=== PATIENT | male | born 1960 | race Caucasian/White ===

== ENCOUNTER → 2016-07-11 | Outpatient (CLI) | payer MEDICARE, SELFPAY ==
[~2016-07-11] MED LIST: CASCARA SAGRADA1 ML PO; CRANBERRY PO; FAMOTIDINE40 MG PO; FLUTICASONE PRO16 GM; GARLIC PO; NORCO 5-325 TA1 EACH PO; PATADAY EYE DROPS; PROTONIX20 MG PO; TART CHERRY PO; ULTRAM50 MG PO; ZANAFLEX4 MG PO; [UNRECOGNIZED DRUG - OTHER]; [UNRECOGNIZED DRUG - OTHER] PO
== END ==
LOC: RAD 08:52
DX: S46.011A Strain of muscle(s) and tendon(s) of the rotator cuff of right shoulder, initial encounter (principal); M75.101 Unspecified rotator cuff tear or rupture of right shoulder, not specified as traumatic; S46.821A Laceration of other muscles, fascia and tendons at shoulder and upper arm level, right arm, initial encounter
CPT/HCPCS: 73040; 73222; A9577; Q9962

== ENCOUNTER → 2020-05-21 | Outpatient (CLI) | payer MEDICARE, OTHER ==
[~2020-05-21] MED LIST changes: +CALCIUM500 MG PO; +CBD OIL PO; +CONSTULOSE10 GM/15 M PO; +EUTHYROX75 MCG PO; +FAMCICLOVIR250 MG PO; +GLUCOSAMINE CH1 EAC7 PO; +NINLARO PO; +PROBIOTIC & AC1 EACH PO; +VITAMIN D310 MC2 PO; +ZOMETA 4 M4 MG/100 M INJ
== END ==
LOC: LAB 09:18
DX: R79.89 Other specified abnormal findings of blood chemistry (principal); Z90.09 Acquired absence of other part of head and neck
CPT/HCPCS: 36415; 84439; 84443

== ENCOUNTER → 2020-05-26 | Outpatient (CLI) | payer MEDICARE, OTHER | LOC: US 09:18 | DX: N50.812 Left testicular pain (principal); N50.89 Other specified disorders of the male genital organs | CPT/HCPCS: 76870 ==

== ENCOUNTER → 2020-07-06 | Outpatient (CLI) | payer MEDICARE, OTHER | LOC: LAB 11:51 | DX: E03.9 Hypothyroidism, unspecified (principal) | CPT/HCPCS: 36415; 84439; 84443 ==

== ENCOUNTER → 2020-07-24 | Outpatient (CLI) | payer MEDICARE, OTHER | LOC: EXRD 10:12 | DX: M25.561 Pain in right knee (principal); R93.6 Abnormal findings on diagnostic imaging of limbs | CPT/HCPCS: 73564 ==

== ENCOUNTER → 2020-09-01 | Outpatient (CLI) | payer MEDICARE, OTHER ==
[2020-09-01 11:26] LABS: BUN/CREATININE RATIO 14 (0-10)
== END ==
LOC: LAB 09:58
PROVIDERS: Family Medicine
DX: E03.9 Hypothyroidism, unspecified (principal); E78.2 Mixed hyperlipidemia; N40.1 Benign prostatic hyperplasia with lower urinary tract symptoms; Z12.5 Encounter for screening for malignant neoplasm of prostate
CPT/HCPCS: 36415; 80053; 80061; 84439; 84443; G0103

== ENCOUNTER → 2020-09-15 | Day surgery (SDC) | payer MEDICARE, OTHER | END | disposition home or self-care (01) | LOC: OR 07:38 | DX: D12.2 Benign neoplasm of ascending colon (principal); D12.0 Benign neoplasm of cecum; K64.8 Other hemorrhoids; Z88.2 Allergy status to sulfonamides; Z88.5 Allergy status to narcotic agent; Z82.49 Family history of ischemic heart disease and other diseases of the circulatory system; E11.9 Type 2 diabetes mellitus without complications; Z80.1 Family history of malignant neoplasm of trachea, bronchus and lung | CPT/HCPCS: J2704; J7040 ==

== ENCOUNTER → 2021-03-24 | Outpatient (CLI) | payer MEDICARE, OTHER ==
[2021-03-24 11:52] LABS: HEMOGLOBIN 15.2 gm/dl (14.0-17.5); RED BLOOD COUNT 4.15 M/UL (4.20-5.50)
[2021-03-24 12:47] LABS: BUN/CREATININE RATIO 19 (0-10)
== END ==
LOC: LAB 10:38
PROVIDERS: Family Medicine
DX: E78.2 Mixed hyperlipidemia (principal); E03.9 Hypothyroidism, unspecified
CPT/HCPCS: 36415; 80053; 80061; 84439; 84443; 85027

== ENCOUNTER → 2021-06-28 | Outpatient (CLI) | payer MEDICARE | LOC: KOH-I 10:51 | DX: C90.00 Multiple myeloma not having achieved remission (principal); C82.03 Follicular lymphoma grade I, intra-abdominal lymph nodes; R59.1 Generalized enlarged lymph nodes; R07.81 Pleurodynia; R07.2 Precordial pain; M89.9 Disorder of bone, unspecified | CPT/HCPCS: 71046; 71100; 77075 ==

== ENCOUNTER → 2021-08-24 | Outpatient (CLI) | payer MEDICARE, OTHER ==
[~2021-08-24] MED LIST changes: +OMNICEF 300 MG300 MG PO; +ZITHROMAX250 MG PO
== END ==
LOC: RAD 16:05
DX: J20.9 Acute bronchitis, unspecified (principal)
CPT/HCPCS: 71046

== ENCOUNTER → 2021-08-30 | Outpatient (CLI) | payer MEDICARE, OTHER ==
[2021-08-30 10:03] LABS: BUN/CREATININE RATIO 25 (0-10)
== END ==
LOC: LAB 08:55
PROVIDERS: Family Medicine
DX: R79.89 Other specified abnormal findings of blood chemistry (principal)
CPT/HCPCS: 36415; 80053

== ENCOUNTER → 2021-10-13 | Day surgery (SDC) | payer MEDICARE, OTHER ==
[~2021-10-13] MED LIST changes: +IBUPROFEN200 M1 PO; +IBUPROFEN600 MG PO; +LINZESS145 MCG PO; +NONI PO; +PROCTOCREAM-HC30 GM PR; +SUPER BETA PROSTATE; +ZINC50 M1 PO; +[UNRECOGNIZED DRUG - OTHER] PO
[2021-10-14 10:16] LABS: HBSAG SCREEN Negative (Negative); HCV AB <0.1 (0.0-0.9); HEP A AB, IGM Negative (Negative); HEP B CORE AB, IGM Negative (Negative)
== END | disposition home or self-care (01) ==
LOC: OR 07:14
PROVIDERS: Surgery
DX: C90.00 Multiple myeloma not having achieved remission (principal); I65.21 Occlusion and stenosis of right carotid artery; K21.9 Gastro-esophageal reflux disease without esophagitis; E03.9 Hypothyroidism, unspecified; E78.2 Mixed hyperlipidemia; Z88.2 Allergy status to sulfonamides; Z88.5 Allergy status to narcotic agent; Z79.899 Other long term (current) drug therapy
CPT/HCPCS: 36415; 71045; 77001; 80074; 86850; 86900; 86901; C1769; C1788; J0690; J1642; J2001; J2250; J2704; J3010; J7040; J7120